=== PATIENT | female | born 1965 | race Caucasian/White ===

== ENCOUNTER 2016-07-07 14:52 | Emergency (ER) | payer OTHER ==
[2016-07-07 15:15] VITALS: BP 122/96
--- NOTE | 2016-07-07 15:34 | ED Physician Documentation ---
Headache - HISTORIAN Historian: patient - HPI Stated Complaint: headache Chief Complaint: Headache Onset: days ago (3 days) Timing: gradual New Gradual Onset: Yes Exposure To: none Severity: moderate Quality: similar to previous Associated Symptoms: sensitivity to light. denies: fever, chills Preceding Symptoms: denies: visual disturbance Exacerbated By: light, noise Further Comments: yes - ROS NEURO/PSYCH: denies: confusion, anxiety, depression GI/: other (nausea, vomited 3 times today) - PAST HX Medical History: no pertinent history Surgical History: other (sinus surgery x 2) Allergies/Adverse Reactions: Allergies Allergy/AdvReac Type Severity Reaction Status Date / Time No Known Allergies Allergy Verified 07/07/16 15:07 Home Medications: Ambulatory Orders Medication Instructions Recorded Butalb/Acetaminophen/Caffeine 1 each PO DIRECTED 02/26/15 [Rntouz-Chbhnxnp-Hapk 50-300-40] - SOCIAL HX Smoking History: other (e carole) Alcohol Use: rarely Drug Use: none - Family HX Family History: migraine headaches - VITAL SIGNS Vital Signs: Vital Signs Temp Pulse Resp BP Pulse Ox 98.2 F 94 H 16 122/96 98 07/07/16 16:14 07/07/16 16:14 07/07/16 16:14 07/07/16 16:14 07/07/16 16:14 - REVIEWED ASSESSMENTS Nursing Assessment Reviewed: Yes Vitals Reviewed: Yes ED Results Lab/Radiology - Orders Orders: ED Orders Category Date Time Status Ketorolac Tromethamine [Toradol] Med 07/07/16 15:38 Discontinued 60 mg IM NOW ONE Ondansetron HCl Rapdis [Zofran Odt] Med 07/07/16 15:47 Discontinued 4 mg .ROUTE .STK-MED ONE Ondansetron HCl Rapdis [Zofran Odt] Med 07/07/16 15:38 Discontinued 4 mg PO Q6H PRN Headache Physical Exam - EXAM General Appearance: alert, mild distress EENT: no facial swelling, eyes nml inspection, PERRL. No: tender temporal artery, pain over sinuses Neck: normal inspection, thyroid normal, supple. No: lymphadenopathy, stiff neck Respiratory: no resp distress, chest non-tender, breath sounds normal. No: wheezes, rales, rhonchi CVS: reg. rate & rhythm, heart sounds nml Abdomen: non-tender, nml bowel sounds, no distention Extremitites: non-tender, normal range of motion, no evidence of injury - NEURO/PSYCH Higher Functions: alert, oriented x3, nml speech, mood/affect nml. denies: confused Cranial: nml as tested, no evidence of acute CVA Cerebellar: nml as tested Sensorimotor: motor nml, sensation nml Discharge Clincal Impression: Migraine headache Qualifiers: Migraine type: without aura Status migrainosus presence: without status migrainosus Intractability: not intractable Qualified Code(s): G43.009 - Migraine without aura, not intractable, without status migrainosus Referrals: Madeleine Chacon FNP [Primary Care Provider] - 2 Days Additional Instructions: Drink a lot of fluids, rest in a quiet dark room. Follow-up with your neurologist. If symptoms do not improve to see your primary care provider or return to the ED. Home Medications: Ambulatory Orders Butalb/Acetaminophen/Caffeine [[place]-Pvvfnije-Xmzx 50-300-40] 1 each PO DIRECTED 02/26/15 Condition: Stable Disposition: 01 HOME, SELF-CARE Decision to Admit: NO Date of Decison to Admit: 07/07/16 Decision Time: 15:41
[2016-07-07] MEDS ORDERED: ONDANSETRON HCL 4 MG TAB.RAPDIS PO PRN (15:38)
[2016-07-07] MEDS ORDERED: KETOROLAC TROMETHAMINE 60 MG/2 ML VIAL IM ONE (15:38)
[2016-07-07] MEDS ORDERED: ONDANSETRON HCL 4 MG TAB.RAPDIS ONE (15:47)
== END 2016-07-07 16:14 | disposition home or self-care (01) ==
LOC: ED 14:52
DX: G43.009 Migraine without aura, not intractable, without status migrainosus (principal); F17.210 Nicotine dependence, cigarettes, uncomplicated
CPT/HCPCS: A9270; J1885; 96372; 99283; 99284

== ENCOUNTER 2016-10-09 06:09 | Emergency (ER) | payer OTHER ==
[2016-10-09] MEDS ORDERED: IPRATROPIUM/ALBUTEROL SULFATE 3 ML AMPUL.NEB NEB ONE (06:40)
--- NOTE | 2016-10-09 06:44 | ED Physician Documentation ---
Upper Respiratory Symptoms - HISTORIAN Historian: patient - HPI Stated Complaint: Fever/SOA Chief Complaint: Upper Respiratory Symptoms Additional Information: fever, prod cough, chest congestion, diff breathing x 2 days. fever at 101 oral , taking tylenol and motrin at home. works at [employer] around people. plus diarrhea Onset: days ago Duration: constant Context: denies: recent foreign travel Severity: mild Associated Symptoms: fever, chest pain, productive cough, shortness of breath, hurts to breathe Worsened by Deep Breath: Yes Further Comments: no - ROS CONST/EYES: denies: weakness CVS/RESP: chest pain, shortness of breath LYMPH: denies: leg swelling GI/: diarrhea NEURO/PSYCH: denies: fainting MS/SKIN: muscle aches - PAST HX Lung Disease: none PE Risk Factors: none Other History: denies: cancer chemo Surgeries/Procedures: none Immunizations: UTD - SOCIAL HX Smoking History: non-smoker Alcohol Use: none Drug Use: none - FAMILY HX Family History: none - VITAL SIGNS Vital Signs: Vital Signs Temp Pulse Resp BP Pulse Ox 98.6 F 88 18 130/93 97 10/09/16 06:09 10/09/16 06:09 10/09/16 06:09 10/09/16 06:09 10/09/16 06:09 - REVIEWED ASSESSMENTS Nursing Assessment Reviewed: Yes Vitals Reviewed: Yes <Cristino Montana - Last Filed: 10/09/16 06:42> - HPI Onset: days ago (2 days) Associated Symptoms: fever (101.1) - VITAL SIGNS Vital Signs: Vital Signs Temp Pulse Resp BP Pulse Ox 98.6 F 88 18 130/93 97 10/09/16 06:09 10/09/16 06:09 10/09/16 06:09 10/09/16 06:09 10/09/16 06:09 <Gilberto More - Last Filed: 10/09/16 11:29> - PAST HX Allergies/Adverse Reactions: Allergies Allergy/AdvReac Type Severity Reaction Status Date / Time No Known Allergies Allergy Verified 10/09/16 06:27 Home Medications: Ambulatory Orders Medication Instructions Recorded Azithromycin [Zithromax] 250 mg PO QD #6 tablet 10/09/16 Butalb/Acetaminophen/Caffeine 1 tab PO PRN 10/09/16 [Fioricet 50-300-40 mg Capsule] Progress - Progress Progress: 0825 Patient states that her pain is some better. Will not be able to get medication for pleurisy today. Will give azithromycin IV dose now. - EKG/XRAY/CT EKG: NSR, nonspecific ST T wave chg <Gilberto More - Last Filed: 10/09/16 11:29> ED Results Lab/Radiology - Orders Orders: ED Orders Category Date Time Status Assess pulse oximetry Q1H Care 10/09/16 06:[address] Saline Lock/IV Now Care 10/09/16 06:42 Ordered CHEST P.A.&LAT 2 VIEWS [RAD] Stat Exams 10/09/16 06:34 Ordered ARTERIAL BLOOD GAS Stat Lab 10/09/16 Uncollected CBC/PLATELET/DIFF Routine Lab 10/09/16 Ordered CMP Routine Lab 10/09/16 Ordered INFLUENZA A&B Routine Lab 10/09/16 Uncollected Ipratropium/Albuterol Sulfate [Duoneb] Med 10/09/16 06:40 Once 3 ml NEB NOW ONE <Cristino Montana - Last Filed: 10/09/16 06:42> - Radiology Radiology Impressions: Chest x-ray was normal - Orders Orders: ED Orders Category Date Time Status Assess pulse oximetry Q1H Care 10/09/16 06:[address] Saline Lock/IV Now Care 10/09/16 06:42 Active CHEST P.A.&LAT 2 VIEWS [RAD] Stat Exams 10/09/16 06:34 Ordered ARTERIAL BLOOD GAS Stat Lab 10/09/16 Uncollected CBC/PLATELET/DIFF Routine Lab 10/09/16 Ordered CMP Routine Lab 10/09/16 Ordered INFLUENZA A&B Routine Lab 10/09/16 Uncollected Ipratropium/Albuterol Sulfate [Duoneb] Med 10/09/16 06:40 Discontinued 3 ml NEB NOW ONE <Gilberto More - Last Filed: 10/09/16 11:29> Upper Respiratory Symptoms - EXAM General Appearance: no acute distress, alert EENT: nml ENT inspection, pharynx nml, airway nml. No: pharyngeal erythema Neck: normal inspection, supple. No: lymphadenopathy, carotid bruit Respiratory: no resp. distress, breath sounds nml, speaks full sentences. No: prolonged expirations, no pleuritic chest pain Abdomen: non-tender CVS: reg rate & rhythm, heart sounds normal, equal pulses Skin: color nml, no rash, warm,dry Extremities: non-tender. No: edema Neuro/Psych: oriented x3, mood/affect nml <Cristino Montana - Last Filed: 10/09/16 06:42> - EXAM Respiratory: respiratory distress (pain with deep breathing). No: wheezes, rales, rhonchi Abdomen: no organomegaly, nml bowel sounds, no distention CVS: no murmur Skin: No: rash <Gilberto More - Last Filed: 10/09/16 11:29> Discharge <Cristino Montana - Last Filed: 10/09/16 06:42> Decision to Admit: NO Date of Decison to Admit: 10/09/16 Decision Time: 08:17 <Gilberto More - Last Filed: 10/09/16 11:29> Clincal Impression: Pleurisy without effusion Prescriptions: Azithromycin [Zithromax] 250 mg PO QD #6 tablet Referrals: Madeleine Chacon FNP [Primary Care Provider] - 2 Days Additional Instructions: Take some Aleve 2 tablets twice a day. Try using a warm compress to the anterior chest area. Take azithromycin as directed. If symptoms are not improved in the next several days to follow up with your primary care provider or return tot he ED. Home Medications: Ambulatory Orders Azithromycin [Zithromax] 250 mg PO QD #6 tablet 10/09/16 Butalb/Acetaminophen/Caffeine [Fioricet 50-300-40 mg Capsule] 1 tab PO PRN 10/09 Disposition: 01 HOME, SELF-CARE
[2016-10-09 07:37] LABS: EOSINOPHILS % 1.9 % (0.0-6.8); MEAN CORPUSCULAR HEMOGLOBIN 29.7 pg (28.0-34.0); MEAN CORPUSCULAR VOLUME 91.4 fl (80.0-100.0); MONOCYTES % 2.8 % (0.0-11.0); NEUTROPHILS # 3.9 # k/uL (1.4-7.7)
[2016-10-09] MEDS ORDERED: KETOROLAC TROMETHAMINE 30 MG/1ML VIAL IVP ONE (07:43)
[2016-10-09 07:50] LABS: eGFR (African) > 60; eGFR (Non-African) > 60
[2016-10-09] MEDS ORDERED: AZITHROMYCIN 250 MG TABLET PO ONE ×2 (08:27→08:37)
[2016-10-09 08:48] VITALS: BP 161/65
--- NOTE | 2016-10-09 12:50 | Diagnostic Imaging Report ---
GUTIERREZ ROCHE [facility] [address] [facility] [address] [address] Report Submission Date: October 09, 2016 7:01:34 AM CDT Patient Study Name: ROMAN ENRIQUEZ Date: October 09, 2016 6:49:11 AM CDT Modality Type: CR Gender: F Description: CHEST : 67 Institution: [facility] Physician: GUTIERREZ ROCHE Chest PA and lateral views Clinical history: Cough, fever and congestion Normal heart shadow and mediastinum. Clear lungs without acute infiltrate or pleural effusion. Normal bony thorax. Impression: No active pulmonary pathology Electronically signed on October 09, 2016 7:01:34 AM CDT by: Gilberto ARRIOLA
== END 2016-10-09 08:46 | disposition home or self-care (01) ==
LOC: ED 06:09
DX: R09.1 Pleurisy (principal)
CPT/HCPCS: 71020; 80053; 85025; 85379; 87400; 93005; 94640; 94760; J1885; 96372; 99283; S1016

== ENCOUNTER 2017-10-08 14:13 | Outpatient (CLI) | payer OTHER ==
[2017-10-08 14:29] LABS: BASOPHILS % 0.8 (0.0-1.5); EOSINOPHILS % 3.8 % (0.0-6.8); MEAN CORPUSCULAR HEMOGLOBIN 29.8 pg (28.0-34.0); MEAN CORPUSCULAR VOLUME 91.7 fl (80.0-100.0); MONOCYTES % 3.9 % (0.0-11.0); NEUTROPHILS # 2.8 # k/uL (1.4-7.7)
[2017-10-08 14:50] LABS: eGFR (African) > 60; eGFR (Non-African) > 60
== END 2017-10-08 14:14 ==
LOC: LAB 14:13
PROVIDERS: ATTEND Nurse Practitioner Family
DX: R53.1 Weakness (principal); R53.83 Other fatigue; Z79.899 Other long term (current) drug therapy; Z83.49 Family history of other endocrine, nutritional and metabolic diseases; Z82.49 Family history of ischemic heart disease and other diseases of the circulatory system
CPT/HCPCS: 36415; 80053; 80061; 83036; 84443; 85025